=== PATIENT | male | born 1945 | race Caucasian/White ===

== ENCOUNTER 2016-08-23 22:30 | Emergency (ER) | payer MEDICARE, BC ==
[~2016-08-23] VITALS: Ht 180.3 cm; Wt 110.0 kg
[~2016-08-23 22:30] MED LIST: CEPHALEXIN250 M1 PO; COLACE 100100 MG/CAP PO; DITROPAN XL10 MG PO; LASIX PO; PERCOCET 5/321 UDTAB PO; PRILOSEC 20MG20 MG PO; REGLAN 10MG10 MG/TAB PO
[2016-08-23 22:36] VITALS: BP 131/83; TEMP 97.8
[2016-08-23] MEDS ORDERED: ASPIRIN 81M81 MG/TA2 PO (22:43)
[2016-08-23] MEDS ORDERED: LIPITOR 10MG10 MG PO (22:47)
[2016-08-23] MEDS ORDERED: NORCO 325 MG-51 TAB PO (23:33)
[2016-08-23 23:45] VITALS: PULSE 78
[2016-08-31] MEDS ORDERED: PERCOCET 325 MG1 TAB PO (10:41)
[2016-08-31] MEDS ORDERED: MIRALAX PA17 GM/Dose PO (12:07)
== END 2016-08-23 23:45 | disposition home or self-care (01) ==
LOC: COL.ER 22:30
DX: S09.90XA Unspecified injury of head, initial encounter (principal); S20.221A Contusion of right back wall of thorax, initial encounter; R10.2 Pelvic and perineal pain; M25.552 Pain in left hip; M25.551 Pain in right hip; W01.198A Fall on same level from slipping, tripping and stumbling with subsequent striking against other object, initial encounter; Y92.480 Sidewalk as the place of occurrence of the external cause; Z79.82 Long term (current) use of aspirin; R40.2412 Glasgow coma scale score 13-15, at arrival to emergency department

== ENCOUNTER 2016-08-29 16:58 | Emergency (ER) | payer MEDICARE, BC ==
[~2016-08-29] VITALS: Ht 180.3 cm; Wt 110.0 kg
[~2016-08-29 16:58] MED LIST changes: +ASPIRIN 81M81 MG/TA2 PO; +LIPITOR 10MG10 MG PO; +NORCO 325 MG-51 TAB PO
[2016-08-29 17:03] VITALS: TEMP 99.1
[2016-08-29] MEDS ORDERED: VALIUM 5MG T5 MG/TAB PO (19:42)
[2016-08-29 19:57] VITALS: BP 132/69; PULSE 72
[2016-08-31] MEDS ORDERED: PERCOCET 325 MG1 TAB PO (10:41)
[2016-08-31] MEDS ORDERED: MIRALAX PA17 GM/Dose PO (12:07)
== END 2016-08-29 19:59 | disposition home or self-care (01) ==
LOC: COL.ER 16:58
DX: M54.6 Pain in thoracic spine (principal); E78.5 Hyperlipidemia, unspecified; W17.2XXA Fall into hole, initial encounter; Y92.830 Public park as the place of occurrence of the external cause
CPT/HCPCS: J2270; J3360

== ENCOUNTER → 2016-08-31 | Outpatient (CLI) | payer MEDICARE, BC ==
[~2016-08-31] MED LIST changes: +MIRALAX PA17 GM/Dose PO; +PERCOCET 325 MG1 TAB PO; +VALIUM 5MG T5 MG/TAB PO
== END ==
LOC: COL.RAD 16:29
DX: Z01.89 Encounter for other specified special examinations (principal)

== ENCOUNTER → 2020-12-07 | Outpatient (CLI) | payer MEDICARE, BC | LOC: COL.RAD 08:53 | DX: M16.12 Unilateral primary osteoarthritis, left hip (principal) | CPT/HCPCS: J3301; Q9967 ==

== ENCOUNTER 2021-11-24 02:12 | Inpatient (IN) | payer MEDICARE, BC ==
[~2021-11-24] VITALS: Ht 180.3 cm; Wt 111.7 kg
[2021-11-24 03:15] LABS: HEMOGLOBIN 10.3 g/dl (13.5-18.0); MEAN CELL VOLUME 95 fl (80.0-100.0); MEAN CORPUSCULAR HEMOGLOBIN 30 pg (27-31); MEAN CORPUSCULAR HGB CONC 32 g/dl (33.0-37.0); MEAN PLATELET VOLUME 9.9 fl (7.4-10.4); PLATELET COUNT 223 K/mm3 (130-400); REDCELL DISTRIBUTION WIDTH-CV 14.6 % (11.5-14.5)
[2021-11-24 03:21] LABS: HEMATOCRIT 32.4 % (42.0-52.0)
[2021-11-24 03:23] LABS: PROTHROMBIN TIME 11.4 SECONDS (9.7-12.8)
[2021-11-24] MEDS ORDERED: AVAPRO TAB150 MG/TAB PO (03:26)
[2021-11-24] MEDS ORDERED: REGLAN 10MG10 MG/TAB PO (03:26)
[2021-11-24] MEDS ORDERED: ALEVE LIQCAPS (03:28)
[2021-11-24] MEDS ORDERED: ROXICODONE 55 MG/TAB PO (03:29)
[2021-11-24 03:32] LABS: ALANINE AMINOTRANSFERASE 6 U/L (0-55); ALBUMIN 2.7 gm/dL (3.4-4.8); ALKALINE PHOSPHATASE 69 U/L (40-150); ANION GAP 10 mmol/L (7-16); AST,SGOT 9 U/L (5-34); BILIRUBIN,TOTAL 0.3 mg/dL (0.2-1.2); BLOOD UREA NITROGEN 47 mg/dL (8-26); CARBON DIOXIDE 25 mmol/L (23-31); CHLORIDE 103 mmol/L (98-107); CREATININE, serum 1.86 mg/dL (0.72-1.25); GLUCOSE 157 mg/dL (70-99); POTASSIUM 5.3 mmol/L (3.5-4.5); SODIUM 138 mmol/L (136-145); TOTAL PROTEIN 5.5 gm/dL (6.2-8.1)
[2021-11-24 03:38] LABS: TROPONIN-I < 0.010 ng/mL (0.00-0.033)
[2021-11-24 03:43] LABS: BAND 19 % (0-10); LYMPHOCYTE 9 % (20.0-51.0); NEUTROPHILS 63 % (42.0-75.2); PLATELET ESTIMATE NORMAL (NORMAL)
[2021-11-24] MEDS ORDERED: FLOMAX 0.40.4 MG/CAP PO (04:07)
[2021-11-24 06:32] LABS: COLLECTION METHOD CLEAN CATCH
[2021-11-24 06:46] LABS: URINE APPEARANCE Clear (CLEAR/HAZY); URINE BLOOD TRACE-INTACT (NEGATIVE); URINE COLOR Yellow (YELLOW); URINE GLUCOSE Negative (NEGATIVE); URINE KETONE TRACE (NEGATIVE); URINE NITRATE Negative (NEGATIVE); URINE PROTEIN(semi-quant) Negative (NEGATIVE); URINE UROBILINOGEN 0.2 E.U/dL (0.2-1.0)
[2021-11-24 06:49] LABS: MUCOUS Present (NOT PRESENT); SQUAMOUS EPITHELIAL 0-2 /hpf (0-10); URINE BACTERIA None Seen /hpf (NONE SEEN); URINE RBC 0-2 /hpf (0-2)
[2021-11-24 07:44] VITALS: BP 124/62; PULSE 84; TEMP 97.5
--- NOTE | 2021-11-24 09:13 | NUR ---
Vancomycin Initial Dosing Pharmacy Note Ordering provider: Avery Maciel MD Indication/duration: SEPSIS LABS: SCR 1.9, CRCL 39 Recommendation: VANCOMYCIN ~15MG/KG Loading dose: 1.25 grams (IN ED) + 750 MG = 2G LOAD Maintenance dose: 1.75 grams every 24 hours Trough goal: 15-20 ug/mL. TROUGH 11/28 @0630
[2021-11-24 11:09] VITALS: BP 118/59; PULSE 101; TEMP 97.7
[2021-11-24 15:51] VITALS: BP 119/63; PULSE 110; TEMP 98.1
[2021-11-24 18:53] VITALS: BP 132/67; PULSE 54; TEMP 98.1
[2021-11-25] VITALS: BP 115/50; PULSE 108; TEMP 97.6
[2021-11-25 04:00] VITALS: BP 138/63; PULSE 94; TEMP 98.7
[2021-11-25 06:22] LABS: MEAN CELL VOLUME 96 fl (80.0-100.0); MEAN CORPUSCULAR HGB CONC 32 g/dl (33.0-37.0); MEAN PLATELET VOLUME 10.2 fl (7.4-10.4); PLATELET COUNT 191 K/mm3 (130-400); RED BLOOD COUNT 2.88 M/mm3 (4.20-5.60); REDCELL DISTRIBUTION WIDTH-CV 15.1 % (11.5-14.5)
[2021-11-25 06:29] LABS: HEMATOCRIT 27.7 % (42.0-52.0); HEMOGLOBIN 8.8 g/dl (13.5-18.0); MEAN CORPUSCULAR HEMOGLOBIN 31 pg (27-31)
[2021-11-25 06:44] LABS: CALCIUM 8.2 mg/dL (8.4-10.2); CREATININE, serum 0.92 mg/dL (0.72-1.25); MAGNESIUM 2.2 mg/dL (1.6-2.6); POTASSIUM 4.6 mmol/L (3.5-4.5)
[2021-11-25 07:16] VITALS: BP 118/57; PULSE 101; TEMP 97.4
[2021-11-25 07:52] LABS: BAND 11 % (0-10); EOSINOPHIL 1 % (0-4); LYMPHOCYTE 18 % (20.0-51.0); METAMYELOCYTE 2 % (0-0); NEUTROPHILS 63 % (42.0-75.2); PLATELET ESTIMATE NORMAL (NORMAL)
--- NOTE | 2021-11-25 09:27 | NUR ---
Initial visit; Patient thanked Official Court Reporter for looking in on him and keeping him in her prayers. Official Court Reporter offered God's blessings and will follow up. Patient had a visitor.
[2021-11-25 11:16] VITALS: BP 140/58; PULSE 112; TEMP 98.4
--- NOTE | 2021-11-25 15:03 | NUR ---
Insurance Underwriting Assistant attempted to complete intake with patient, however he stated he is in a bad mood and did not feel like talking. SW did speak with patient about OT recommendation for Home Health and he declined. Patient stated his daughter, Bernie will be staying with him for a week and is a PARK MANAGER. Patient is also set up at [facility] for PT. SW asked patient if he had a DPOA-HC and patient stated yes. SW asked who his DPOA-HC was and patient stated it was none of MIGUELINA's business. Discharge Plan: Home
[2021-11-25 15:29] VITALS: BP 109/76; PULSE 117; TEMP 98
--- NOTE | 2021-11-25 18:30 | NUR ---
PT IS LAYING IN BED AT THIS TIME. DAUGHTER GRACE IS AT BEDSIDE. HE DENIES ANY PAIN OR DISCOMFORT. DAUGHTER STATES THAT THE PATIENT HAS BEEN SOMEWHAT CONFUSED OR FORGETFUL TODAY WHICH IS NOT HIS BASELINE. PT DOES ANSWER ORIENTATION QUESTIONS APPROPRIATELY. NO OTHER CONCERNS.
[2021-11-25 20:45] VITALS: BP 139/66; PULSE 93; TEMP 99
[2021-11-26 04:45] VITALS: BP 144/65; PULSE 96; TEMP 97.6
[2021-11-26 06:45] LABS: MEAN CELL VOLUME 94 fl (80.0-100.0); MEAN CORPUSCULAR HGB CONC 33 g/dl (33.0-37.0); PLATELET COUNT 206 K/mm3 (130-400); RED BLOOD COUNT 2.81 M/mm3 (4.20-5.60)
[2021-11-26 06:47] LABS: HEMATOCRIT 26.4 % (42.0-52.0); HEMOGLOBIN 8.6 g/dl (13.5-18.0); MEAN CORPUSCULAR HEMOGLOBIN 31 pg (27-31)
[2021-11-26 07:09] LABS: ALBUMIN 2.2 gm/dL (3.4-4.8); CALCIUM 8.2 mg/dL (8.4-10.2); CREATININE, serum 0.79 mg/dL (0.72-1.25); PHOSPHOROUS 2.2 mg/dL (2.3-4.7); POTASSIUM 4.2 mmol/L (3.5-4.5)
[2021-11-26 07:14] LABS: BAND 9 % (0-10); BASOPHIL 1 % (0-2); EOSINOPHIL 13 % (0-4); LYMPHOCYTE 18 % (20.0-51.0); METAMYELOCYTE 2 % (0-0); NEUTROPHILS 52 % (42.0-75.2); PLATELET ESTIMATE NORMAL (NORMAL)
[2021-11-26 08:01] VITALS: BP 125/58; PULSE 118; TEMP 98.8
--- NOTE | 2021-11-26 10:00 | NUR ---
pt shift assessment complete, due medication given no adverse reaction noted, pt reports pain on the left knee pain meds offered at this time, pt refused.
[2021-11-26 11:28] VITALS: BP 117/63; PULSE 110; TEMP 97.7
[2021-11-26 15:46] VITALS: BP 129/60; PULSE 105; PULSE 85; TEMP 98
--- NOTE | 2021-11-26 16:00 | NUR ---
this RN walks into the pt room to check on pt, pt complains of bed alarm not working, pt raised concerns on not being able to call out when he needs help. after checking bed , malfuction noted, charged nurse notified, plan is to change the pts bed to fuctioning one.
--- NOTE | 2021-11-26 17:30 | NUR ---
This RN and PCT changed pt bed to anew one, bed alarms tested and fuctioning pt is greatful.no further complaints.
--- NOTE | 2021-11-26 17:30 | NUR ---
knees dressing saturated, dressing change done incision covered with aquacel.
--- NOTE | 2021-11-26 18:30 | NUR ---
Report rcvd from SHELBI Rossi. Pt family has some concerns regarding patient care. SHELBI Song has had a conversation regarding those concerns. The patient states to this RN that he is concerned that his daughter is complaining about things that are beyond their control. The patient is aware that his daughter is complaining and is concerned that people are getting in trouble because his daughter is upset. There are no other concerns at this time. Will continue to monitor and check on the family through the night.
[2021-11-26 18:33] LABS: HEMATOCRIT 27.2 % (42.0-52.0); HEMOGLOBIN 8.9 g/dl (13.5-18.0)
[2021-11-26 19:47] VITALS: BP 149/71; PULSE 116; TEMP 98.3
--- NOTE | 2021-11-26 20:03 | NUR ---
Bernie Peralta, patient's daughter, approached this RN with a number of concerns regarding father's current stay. Mrs. Peralta was concerned that patient was not recieving home medications as prescribed. With the permission of patient, medications were reviewed with Mrs. Peralta and explanations on why certain medications were not being given were provided. Concern over patient' anxiety was also expressed, Mrs. Peralta stated that as DPOA she has the ability to request xanax to be administered to patient without the patient being aware. Daughter believes that asking patient about his anxiety, only increases this feeling and makes things more difficult for patient. This RN explained to daughter that we were unable to administer medication without the patient being aware of what they were taking and that we could attempt alternative measures to ease his anxiety. Daughter stated she did not feel patient was not being checked on frequently enough. Verified with nursing staff that rounds were being made on patient per protocol. Daughter stated that bed was not functioning properly. This RN replaced bed and verified all parts were working properly on new bed. Mrs. Peralta was concerned that information regarding patient's care was not being relayed to her properly by staff. This RN informed daughter of times that doctors round, and that a request could be made to call daughter with any updates during that time. Per greenhouse grower, daughter is cleared to overnight. Daughter denies any further questions or concerns at this time.
[2021-11-27 04:46] VITALS: BP 126/73; PULSE 109; TEMP 98.2
[2021-11-27 06:43] LABS: MEAN CELL VOLUME 94 fl (80.0-100.0); MEAN CORPUSCULAR HGB CONC 33 g/dl (33.0-37.0); MEAN PLATELET VOLUME 9.7 fl (7.4-10.4); PLATELET COUNT 225 K/mm3 (130-400); RED BLOOD COUNT 2.72 M/mm3 (4.20-5.60); REDCELL DISTRIBUTION WIDTH-CV 15.1 % (11.5-14.5)
[2021-11-27 06:52] LABS: HEMATOCRIT 25.6 % (42.0-52.0); HEMOGLOBIN 8.4 g/dl (13.5-18.0); MEAN CORPUSCULAR HEMOGLOBIN 31 pg (27-31)
[2021-11-27 06:56] LABS: ALBUMIN 2.2 gm/dL (3.4-4.8); CALCIUM 8.1 mg/dL (8.4-10.2); CREATININE, serum 0.8 mg/dL (0.72-1.25); PHOSPHOROUS 3.3 mg/dL (2.3-4.7); POTASSIUM 4.4 mmol/L (3.5-4.5)
--- NOTE | 2021-11-27 07:00 | NUR ---
THE PATIENT'S DAUGHTER WAS STILL DIFFICULT TO MANAGE THROUGH THE NIGHT, BUT WAS MUCH EASIER THAN THE NIGHT PRIOR. THE PATIENT'S DAUGHTER CONTINUED TO ASK FOR XANAX FOR THE PATIENT. SHE STATES "I AM HIS DPOA, AND I AM ASKING THAT YOU JUST PUT HIS MEDICATIONS IN A CUP, AND TELL HIM IT'S HIS NORMAL MEDICATIONS SO THAT HE GETS THE XANAX." THIS RN STATED THAT I REFUSE TO ADMINISTER A MEDICATION WITHOUT THE PATIENT'S KNOWLEDGE. THE PATIENT DID STATE THAT HE WANTED HIS DAUGHTER TO STOP "BUTTING IN WHEN THIS ISN'T ABOUT HER." HE DID INFORM HER THAT HE WANTS TO BE IN CONTROL OF HIS HOSPITALIZATION AND THAT "SHE IS STICKING HER NOSE WHERE IS DOES NOT BELONG. THE PATIENT'S DAUGHTER BECAME VERY QUIET AT THAT TIME. DURING THE REMAINDER OF THE NIGHT, THE PATIENT AND HIS DAUGHTER SLEPT WELL, DENIED SEVERE PAIN, DID NOT REQUIRE PAIN MEDICATIONS. REPORT GIVEN TO SHELBI GREER.
[2021-11-27 07:28] LABS: BAND 1 % (0-10); EOSINOPHIL 7 % (0-4); LYMPHOCYTE 19 % (20.0-51.0); MYELOCYTE 3 % (0-0); NEUTROPHILS 64 % (42.0-75.2); PLATELET ESTIMATE NORMAL (NORMAL)
[2021-11-27 07:58] VITALS: BP 136/75; PULSE 106; TEMP 97.9
--- NOTE | 2021-11-27 10:00 | NUR ---
shift assessment completed, pt vss, and orient.left lower leg has a brace.due medications given , new iv cannula inserted.
--- NOTE | 2021-11-27 10:37 | NUR ---
PT SLEEPING DURING BEDSIDE REPORT
[2021-11-27 12:26] VITALS: BP 114/50; PULSE 104; TEMP 98.6
--- NOTE | 2021-11-27 12:42 | NUR ---
Drug Safety Physician rounds: Drug Safety Physician visit attempted. Doctor was with Patient.
--- NOTE | 2021-11-27 15:15 | NUR ---
Data Analytics Specialist visit: Data Analytics Specialist was not able to visit during AM rounds. Returned this afternoon. Patient described his urinary tract issues. Patient was a little tearful because of the stress and the embarrassment that these issues cause. Data Analytics Specialist prayed for Patient, provided supportive listening, and found the [facility] football scores from today to help lift his spirits. Patient is waiting for his daughter to visit this evening. He is hopeful to go home tomorrow, but knows there is a possibility he might need to stay until Monday.
[2021-11-27 16:04] VITALS: BP 120/56; PULSE 115; TEMP 99.3
--- NOTE | 2021-11-27 16:51 | NUR ---
pt had a calm day, vss, alert and orient x4 throughout the day, c/o of pain and stomach upset notified and prescribed medicatons given all meds tolarated well.pt ambulating several times to the bathroom urinal at bedside.
--- NOTE | 2021-11-27 18:30 | NUR ---
REPORT RCVD FROM SHELBI OCONNELL. THE PATIENT WAS FRUSTRATED THAT HIS DAUGHTER WAS NOT GOING TO STAY THE NIGHT THIS EVENING. DURING SHIFT CHANGE WE DISCUSSED THE USE OF HIS CALL LIGHT, AND THAT HE CAN CALL ME ANYTIME AND I WILL COME HELP HIM. NO OTHER CONCERNS AT THIS TIME. DISCUSSED THE EVENING PLAN WITH ELENA EDWARDS'S DAUGHTER ON THE TELEPHONE. NO CONCERNS FROM HER TONIGHT EITHER.
[2021-11-27 19:30] VITALS: BP 119/50; PULSE 117; TEMP 98.5
[2021-11-28 00:10] VITALS: BP 133/54; PULSE 109; TEMP 99.3
[2021-11-28 04:21] VITALS: BP 131/69; PULSE 105; TEMP 98.4
[2021-11-28 06:16] LABS: MEAN CELL VOLUME 95 fl (80.0-100.0); MEAN CORPUSCULAR HGB CONC 33 g/dl (33.0-37.0); MEAN PLATELET VOLUME 9.7 fl (7.4-10.4); PLATELET COUNT 233 K/mm3 (130-400); RED BLOOD COUNT 2.68 M/mm3 (4.20-5.60); REDCELL DISTRIBUTION WIDTH-CV 15.2 % (11.5-14.5)
[2021-11-28 06:22] LABS: HEMATOCRIT 25.4 % (42.0-52.0); HEMOGLOBIN 8.3 g/dl (13.5-18.0); MEAN CORPUSCULAR HEMOGLOBIN 31 pg (27-31)
[2021-11-28 07:01] LABS: ALBUMIN 2.2 gm/dL (3.4-4.8); CALCIUM 8.2 mg/dL (8.4-10.2); CREATININE, serum 0.82 mg/dL (0.72-1.25); MAGNESIUM 2.2 mg/dL (1.6-2.6); PHOSPHOROUS 3.6 mg/dL (2.3-4.7); POTASSIUM 4.3 mmol/L (3.5-4.5)
[2021-11-28 07:02] LABS: ANISOCYTOSIS 1+; BAND 11 % (0-10); EOSINOPHIL 8 % (0-4); HYPOCHROMIA 1+; LYMPHOCYTE 13 % (20.0-51.0); MYELOCYTE 1 % (0-0); NEUTROPHILS 58 % (42.0-75.2); PLATELET ESTIMATE NORMAL (NORMAL)
[2021-11-28 07:40] VITALS: BP 138/64; PULSE 62; TEMP 98.3
--- NOTE | 2021-11-28 09:38 | NUR ---
PATIENT HAVING NEW ONSET INCONTINENCE OF BOWELS. ALSO STATED HE IS HAVING FREQUENCY AND URGENCY WITH URNIATION. BOTH OF WHICH HE DID NOT HAVE PREVIOUSLY. WILL UPDATE MD IN ROUNDS.
[2021-11-28 11:43] VITALS: BP 126/55; PULSE 114; TEMP 98
--- NOTE | 2021-11-28 12:02 | NUR ---
BLADDER SCAN SHOWED 0CC WITH MULTIPLE ATTEMPTS.
[2021-11-28 15:59] VITALS: BP 128/67; PULSE 99; TEMP 98.8
--- NOTE | 2021-11-28 20:00 | NUR ---
Pt watching TV. A&O x3. VSS. Pt scoring pain on left knee at 7/10. He requested pain medication at this time. No other needs or concerns expressed at this moment. LFA INT CDI. No redness or edema. SCD on right leg. Brace on place on left leg. Fall risk precautions remain in place. Call light within reach.
[2021-11-28 20:19] VITALS: BP 108/55; PULSE 61; TEMP 98.3
[2021-11-29 00:42] VITALS: BP 127/62; PULSE 102; TEMP 98.1
[2021-11-29 04:42] VITALS: BP 140/64; PULSE 100; TEMP 98.5
--- NOTE | 2021-11-29 06:51 | NUR ---
Pt had an uneventful night. wake up once to request his pain medication. Fluids running at this time. No other requests at this time. Call light within reach.
[2021-11-29 07:14] VITALS: BP 115/59; PULSE 86; TEMP 98.1
[2021-11-29 07:52] LABS: ALBUMIN 2.2 gm/dL (3.4-4.8); CALCIUM 8.2 mg/dL (8.4-10.2); CREATININE, serum 0.87 mg/dL (0.72-1.25); MAGNESIUM 2.1 mg/dL (1.6-2.6); PHOSPHOROUS 3.3 mg/dL (2.3-4.7); POTASSIUM 4.1 mmol/L (3.5-4.5)
[2021-11-29 08:12] LABS: MEAN CELL VOLUME 96 fl (80.0-100.0); MEAN CORPUSCULAR HGB CONC 32 g/dl (33.0-37.0); MEAN PLATELET VOLUME 9.5 fl (7.4-10.4); PLATELET COUNT 250 K/mm3 (130-400); REDCELL DISTRIBUTION WIDTH-CV 15.4 % (11.5-14.5)
[2021-11-29 08:15] LABS: HEMATOCRIT 25.9 % (42.0-52.0); HEMOGLOBIN 8.2 g/dl (13.5-18.0); MEAN CORPUSCULAR HEMOGLOBIN 30 pg (27-31)
[2021-11-29 09:08] VITALS: BP 135/50; PULSE 97
[2021-11-29 09:34] LABS: EOSINOPHIL 12 % (0-4); LYMPHOCYTE 19 % (20.0-51.0); NEUTROPHILS 58 % (42.0-75.2)
[2021-11-29 09:35] LABS: ANISOCYTOSIS 1+; HYPOCHROMIA 2+; PLATELET ESTIMATE NORMAL (NORMAL)
--- NOTE | 2021-11-29 10:18 | NUR ---
SHIFT ASSESSMENT COMPLETED AND MORNING MEDICATIONS ADMINISTERED. PATIENT IS ALERT AND ORIENTED X4. DAUGHTER AT BEDSIDE. LUNGS CTA. STATES HE HAS PAIN 5/10 TO HIS LEFT KNEE, BUT STATES HE DOES NOT WANT HIS OXYCODONE AT THIS TIME AND THAT HE WOULD LIKE TO WAIT AND TAKE HIS OXYCODONE AND APAP TOGETHER. PATIENT REPOSITIONED FOR COMFORT WITH ASSISTANCE OF DRIVERS LICENSE EXAMINER. IV TO LEFT FOREARM INTACT, NO SIGNS OF INFILTRATION OR PHLEBITIS NOTED. IV ZOCYN RUNNING AT 25/HR, PATIENT TOLERATING WELL. DENIES ANY NEEDS AT THIS TIME. CALL LIGHT WITHIN REACH, BED IN LOWEST, LOCKED POSITION.
[2021-11-29] MEDS ORDERED: CARDIZEM CD 12120 MG PO (10:25)
[2021-11-29] MEDS ORDERED: ASPIRIN 32325 MG/TAB PO (10:26)
[2021-11-29 11:15] VITALS: BP 115/46; PULSE 93; TEMP 98.2
--- NOTE | 2021-11-29 11:57 | NUR ---
PATIENT STATES HIS PAIN IS 5/10 TO HIS LEFT KNEE. PATIENT STATES "THAT MEDICATION SURE HELPED A LOT." DENIES NEED FOR FURTHER PAIN MEDICATION OR REPOSITIONING, STATES HE IS COMFORTABLE AT THIS TIME.
--- NOTE | 2021-11-29 15:16 | NUR ---
Zinc Etcher met with patient's daughter, Bernie to discuss discharge planning. Bernie plans to stay with patient at time of discharge and inquired about a home bed alarm. MIGUELINA contacted [employer] and they do not carry this. MIGUELINA found that you can purchase these online. MIGUELINA left a message with Bernie and attempted to update.
[2021-11-29 15:21] VITALS: BP 110/69; PULSE 93; TEMP 98.1
--- NOTE | 2021-11-29 18:41 | NUR ---
DISCHARGE INSTRUCTIONS AND EDUCATION DISCUSSED WITH PATIENT WITH DAUGHTER AT BEDSIDE. EDUCATION PROVIDED ON AFIB, ASPIRIN, SEPSIS, FALLS, CARDIZEM, AND HOME MEDICATION DISPOSAL. PATIENT VERBALIZED UNDERSTANDING. MEDICATIONS REVIEWED WITH PATIENT AND QUESTIONS ANSWERED. FOLLOW UP APTS DISCUSSED, PATIENT VERBALIZED UNDERSTANDING. PATIENT TO CONTACT [facility] IN THE MORNING REGARDING HIS LEFT KNEE BRACE AND DRESSING, PATIENT VERBALIZED UNDERSTANDING. IV TO LEFT FOREARM REMOVED, CATHETER INTACT, NO BLEEDING NOTED, DRESSING APPLIED. DENIES ANY FURTHER QUESTIONS OR NEEDS AT THIS TIME.
== END 2021-11-29 19:05 | disposition home or self-care (01) | DRG 919 ==
LOC: COL.ER 02:12 → MEDICAL 04:13
PROVIDERS: Emergency Medicine; Internal Medicine; Student in an Organized Health Care Education/Training Program; ADMIT Internal Medicine
PROC: 0HQLXZZ Repair Left Lower Leg Skin, External Approach (ICD-10-PCS; principal; 2021-11-24)
DX: T81.31XA Disruption of external operation (surgical) wound, not elsewhere classified, initial encounter (principal); G93.41 Metabolic encephalopathy; J96.01 Acute respiratory failure with hypoxia; N17.9 Acute kidney failure, unspecified; E87.20 Acidosis, unspecified; E78.5 Hyperlipidemia, unspecified; Z96.652 Presence of left artificial knee joint; F03.90 Unspecified dementia, unspecified severity, without behavioral disturbance, psychotic disturbance, mood disturbance, and anxiety; S81.012A Laceration without foreign body, left knee, initial encounter; W18.39XA Other fall on same level, initial encounter; K21.9 Gastro-esophageal reflux disease without esophagitis; E87.5 Hyperkalemia; I12.9 Hypertensive chronic kidney disease with stage 1 through stage 4 chronic kidney disease, or unspecified chronic kidney disease; N18.9 Chronic kidney disease, unspecified; J84.10 Pulmonary fibrosis, unspecified; S40.212A Abrasion of left shoulder, initial encounter; D64.9 Anemia, unspecified; N40.1 Benign prostatic hyperplasia with lower urinary tract symptoms; N39.498 Other specified urinary incontinence; I48.91 Unspecified atrial fibrillation; I48.0 Paroxysmal atrial fibrillation; R33.9 Retention of urine, unspecified; Z20.822 Contact with and (suspected) exposure to COVID-19; Y93.89 Activity, other specified; Y92.89 Other specified places as the place of occurrence of the external cause; Z88.2 Allergy status to sulfonamides; Z91.030 Bee allergy status; Z79.82 Long term (current) use of aspirin
CPT/HCPCS: A4314; J2543; J3370; J7030; J7040; J7050